=== PATIENT | male | born 1990 | race Caucasian/White ===

== ENCOUNTER 2017-08-02 05:55 | Day surgery (SDC) | payer OTHER ==
[2017-08-02] MEDS ORDERED: NEOSTIGMINE 10 MG/10 ML VIAL (J2710) (05:56)
[2017-08-02] MEDS: LR 1,000 ML IV (06:35)
[2017-08-02] MEDS ORDERED: ROCURONIUM BROMIDE 50 MG/5 ML VIAL As Ordered ×2 (07:33→08:25)
[2017-08-02] MEDS ORDERED: LIDOCAINE 2% INJ 100 MG/5 ML SDV (FOR ANES.) As Ordered (07:33)
[2017-08-02] MEDS ORDERED: PROPOFOL 200 MG/20 ML VIAL As Ordered (07:33)
[2017-08-02] MEDS ORDERED: fentaNYL 250 MCG/5 ML INJECTION (J3010) As Ordered (07:33)
[2017-08-02] MEDS ORDERED: MIDAZOLAM INJ 2 MG/2 ML VIAL (J2250) As Ordered (07:34)
[2017-08-02] MEDS ORDERED: dexameTHASONE 4 MG/ML 1ML VIAL (J1100) As Ordered (08:04)
[2017-08-02] MEDS: CEFAZOLIN SOD 1 GM in APPROPRIATE DILUENT 1 EA IV (08:08)
[2017-08-02] MEDS ORDERED: KETOROLAC 60 MG/2 ML VIAL (J1885) As Ordered (08:28)
[2017-08-02] MEDS ORDERED: ONDANSETRON 4MG/2ML VIAL (J2405) As Ordered (08:28)
[2017-08-02] MEDS ORDERED: NEOSTIGMINE 10 MG/10 ML VIAL (J2710) As Ordered (08:28)
[2017-08-02] MEDS ORDERED: GLYCOPYRROLATE INJ 0.2 MG/ML 2 ML VIAL As Ordered ×2 (08:28)
[2017-08-02] MEDS ORDERED: PHENYLephrine HCL 500 MCG/5 ML (100MCG/ML) SYRINGE (J2370) As Ordered (08:42)
[2017-08-02] MEDS: BUPIVACAINE HCL 0.25% 30 ML VIAL As Ordered (10:10)
[2017-08-02] MEDS: LIDOCAINE W/EPINEPHRINE 1% 20ML VIAL As Ordered (10:10)
[2017-08-02] MEDS ORDERED: MORPHINE 2 MG/ML 1ML SYRINGE (J2270) IV (10:45)
[2017-08-02] MEDS ORDERED: LR 1,000 ML IV (10:45)
[2017-08-02] MEDS ORDERED: ONDANSETRON 4MG/2ML VIAL (J2405) IV ×2 (10:45)
[2017-08-02] MEDS ORDERED: NORCO, ANEXSIA 5/325MG TABLET (HYDROcodone/ACETAMINOPHEN) PO (10:45)
[2017-08-02] MEDS: PERCOCET 5MG/325MG TAB PO ×2 (10:46→11:25)
[2017-08-02] MEDS: fentaNYL 100 MCG/2 ML INJECTION (J3010) IV ×2 (10:55→11:00)
[2017-08-02] MEDS ORDERED: KETOROLAC 30 MG/ML VIAL (J1885) IV (14:00)
== END 2017-08-02 14:35 | disposition home or self-care (01) ==
LOC: M SDC 05:55
DX: K40.90 Unilateral inguinal hernia, without obstruction or gangrene, not specified as recurrent (principal)
CPT/HCPCS: 49505